=== PATIENT | female | born 2000 | race Caucasian/White ===

== ENCOUNTER 2018-04-06 23:56 | Emergency (ER) | payer BC, SELFPAY ==
[2018-04-06 23:57] VITALS: BP 155/82; PULSE 97; RESP 18; TEMP 37; O2SAT 99; BMI 36.8
[2018-04-07 00:03] VITALS: RESP 16
--- NOTE | 2018-04-07 00:13 | ED.DCSUM_ITS ---
- ER Visit Summary Date of Service: 04/07/18 Chief Complaint: Left flank pain History of Present Illness: The patient is a 18 F with left flank pain since waking yesterday morning. It is not necessarily worsened by movement. No recent injury. Patient states she did have some pain with urinating last week, but none the last several days. No blood in her urine. No fever or chills. Physical Examination: Blood pressure is 155/82, otherwise vitals unremarkable. Head neck examination is unremarkable. Heart is regular rate and rhythm. Lung sounds are clear. Abdomen is soft with no anterior abdominal tenderness. Active bowel sounds are noted. Back examination does reveal left CVA tenderness. No rash or lesions. Test Results: CBC was a white count of 14.6 with normal differential. Hemoglobin slightly concentrated at 15.7. Chemistry studies normal. Urinalysis shows 5-10 white cells but 5-10 epithelials. test is negative. Emergency Department Course and Treatment: Patient was given Toradol and IV fluids. On repeat evaluation she does feel significantly improved. At this time patient be treated with a home course of Toradol. If her symptoms worsen she will return for repeat evaluation. She is comfortable with this plan. Treatment Plan: [] Disposition: Discharge Impression: Left flank pain, uncertain etiology This note was generated with [employer] dictation software. It may contain incorrect words, spelling, and punctuation that were not noted in review of the chart prior to signing ED Disposition - Plan for ED Patient: Chief Complaint: Flank Pain Referrals: Jacob Byrnes DO [Primary Care Provider] -
[2018-04-07] MEDS: 0.9% Normal Saline 1,000 ML 250 ML IV (00:29)
[2018-04-07] MEDS: Ketorolac 30 MG/ML Syringe IV (00:29)
[2018-04-07 00:34] LABS: Mucous, Urine 0 SEEN /hpf (<or=2+)
[2018-04-07 00:38] LABS: Absolute Lymphocyte Count 3.17 X10^3/ul (0.83-4.51); Absolute Neutrophil Count 10.3 X10^3/uL (2.0-7.7); Basophil# 0.03 X10^3/uL; Basophil% 0.2 % (0-1); Eosinophil# 0.27 X10^3/uL; Eosinophils% 1.9 % (0-5); Hematocrit 46.9 % (37-47); Hemoglobin 15.7 g/dl (12.0-15.0); Lymphocyte # 3.17 X10^3/ul (4.0); Lymphocyte % 21.8 % (19-41); Mean Corp Hgb Conc 33.5 g/gl (32-36); Mean Corpuscular Hgb 30.1 pg (27.0-32.0); Mean Platelet Vol. 10.6 fl (6.2-12.0); Monocyte# 0.76 X10^3/uL; Monocyte% 5.2 % (0-10); Neutrophil # 10.29 X10^3/uL (2.7-7.7); Neutrophil % 70.6 % (47-70); Platelet Count 329 K/mm3 (150-450); RBC Distribution Width CV 12.2 % (11.6-14.6); Red Blood Count 5.21 M/mm3 (4.2-5.4); White Blood Count 14.6 K/mm3 (4.4-11.0)
[2018-04-07 00:39] LABS: POSITIVE COUNT NO; POSITIVE DIFFERENTIAL NO; POSITIVE MORPHOLOGY NO
[2018-04-07 00:40] LABS: Color, Urine Yellow (Yellow); Glucose, Dipstick Normal (Normal); Ketone-Dipstick Negative (Negative); Leukocyte Esterase-Dipstick 25 /ul (Negative); Nitrite-Dipstick Negative (Negative); Occult Blood-Urine 25 /ul (Negative); Protein-Dipstick 100 mg/dl (Negative); Urine Bilirubin Dipstick Negative (Negative); Urine Clarity Sl. Cloudy (Clear); Urine Urobilinogen Normal (Normal)
[2018-04-07 00:54] LABS: Bacteria 1+ /hpf (None Seen); Squamous Epithelial Cells - UA 5-10 SEEN /hpf (5-10); White Blood Cells 5-10 SEEN /hpf (0-5)
[2018-04-07 00:55] LABS: Red Blood Cells-Urine 0-5 SEEN /hpf (0-5)
[2018-04-07 01:03] LABS: Anion Gap 6 (5-15); BUN 14 mg/dL (7-18); BUN/Creat Ratio 17.5 RATIO (10-20); Calcium,Total 8.7 mg/dL (8.5-10.1); Chloride 105 mmol/L (98-107); EST Glomerular Filtration Rate 97 mL/min (>60); Est Glom Filt Rate - Afr Amer 117 mL/min (>60); Estimated Creatinine Clearance 96.86 ml/min; Glucose 85 mg/dL (74-106); Potassium 3.8 mmol/L (3.5-5.1); Sodium Level 137 mmol/L (136-145)
[2018-04-07 01:24] LABS: Pregnancy, Serum, hCG Quali. NEGATIVE Negative (0-9 Nonpreg)
--- NOTE | 2018-04-07 01:44 | ED.DEP ---
ED Disposition - Plan for ED Patient: Disposition: Home or Assisted Living Chief Complaint: Flank Pain Instructions: ED Flank Pain Uncertain Cause Prescriptions: Ketorolac [Toradol] 10 mg PO Q6H PRN #14 tablet PRN Reason: Pain Referrals: Jacob Byrnes DO [Primary Care Provider] - 1-2 Weeks
[2018-04-07 01:53] VITALS: BP 119/78; PULSE 91; RESP 15; O2SAT 97
== END 2018-04-07 01:55 | disposition home or self-care (01) ==
PROVIDERS: Emergency Provider Emergency Medicine; Family Provider Pediatrics; PCP Pediatrics
DX: R10.9 Unspecified abdominal pain (principal); Z84.1 Family history of disorders of kidney and ureter
CPT/HCPCS: 80048; 81001; 84703; 85025; 96361; 96374; 99283; J7030; A4216

== ENCOUNTER → 2018-09-22 15:34 | Outpatient (CLI) | payer BC, SELFPAY ==
[2018-09-22 19:05] LABS: Chlamydia Trachomatis by PCR Negative (Negative); Neisserai gonorrhoeae by PCR Negative (Negative); Probe Check PASS; Sample Adequacy Control PASS; Specimen Processing Control PASS
[2018-09-28 12:11] LABS: HPV Reflexed? NOT INDICATED
== END ==
PROVIDERS: Visit Provider Obstetrics & Gynecology
DX: Z12.4 Encounter for screening for malignant neoplasm of cervix (principal); Z11.3 Encounter for screening for infections with a predominantly sexual mode of transmission; Z32.01 Encounter for pregnancy test, result positive
CPT/HCPCS: 87491; 87591; 88175; G0145

== ENCOUNTER → 2018-10-09 14:44 | Outpatient (CLI) | payer BC, MEDICAID, SELFPAY ==
[2018-10-09 16:03] LABS: Absolute Neutrophil Count 9.4 X10^3/uL (2.0-7.7); Basophil# 0.02 X10^3/uL; Basophil% 0.2 % (0-1); Eosinophil# 0.09 X10^3/uL; Eosinophils% 0.7 % (0-5); Hematocrit 39.6 % (37-47); Hemoglobin 13.6 g/dl (12.0-15.0); Lymphocyte % 21.5 % (19-41); Mean Corp Hgb Conc 34.3 g/gl (32-36); Mean Corpuscular Hgb 30.4 pg (27.0-32.0); Mean Corpuscular Volume 88.4 fL (81-99); Mean Platelet Vol. 10.4 fl (6.2-12.0); Monocyte# 0.74 X10^3/uL; Monocyte% 5.7 % (0-10); Neutrophil # 9.36 X10^3/uL (2.7-7.7); Neutrophil % 71.8 % (47-70); Platelet Count 293 K/mm3 (150-450); RBC Distribution Width CV 12.6 % (11.6-14.6); RBC Distribution Width SD 40.5 fl (35.1-43.9); Red Blood Count 4.48 M/mm3 (4.2-5.4)
[2018-10-09 16:08] LABS: POSITIVE COUNT NO; POSITIVE DIFFERENTIAL NO; POSITIVE MORPHOLOGY NO
[2018-10-09 16:20] LABS: Color, Urine Yellow (Yellow); Glucose, Dipstick Normal (Normal); Ketone-Dipstick 5 mg/dl (Negative); Leukocyte Esterase-Dipstick 25 /ul (Negative); Nitrite-Dipstick Negative (Negative); Occult Blood-Urine Negative /ul (Negative); Protein-Dipstick Negative (Negative); Specific Gravity, Urine 1.025 (1.002-1.030); Urine Bilirubin Dipstick Negative (Negative); Urine Clarity Cloudy (Clear); Urine Urobilinogen Normal (Normal)
[2018-10-09 16:52] LABS: COTININE Drug Screen Negative (<200 ng/mL)
[2018-10-09 16:53] LABS: Amphetamine Urine VISTA NEGATIVE (<1000 ng/mL); Barbiturate Urine VISTA NEGATIVE (< 200 ng/mL); Benzodiazepine Urine VISTA NEGATIVE (< 200 ng/mL); Cocaine Urine VISTA NEGATIVE (< 300 ng/mL); Ecstacy Urine VISTA NEGATIVE (< 500 ng/mL); Methadone Urine VISTA NEGATIVE (< 300 ng/mL); PCP Urine VISTA NEGATIVE (< 25 ng/mL); THC Urine VISTA NEGATIVE (< 50 ng/mL); Vista UDS pH Range 5
[2018-10-09 17:10] LABS: HIV - WCH Non-Reactive (Nonreactive)
[2018-10-11 14:47] LABS: HEPATITIS B SURFACE AG Negative (Negative); Hep C Antibodies 0.1 s/co ratio (0.0-0.9)
[2018-10-12 10:57] LABS: Free T3 2.8 pg/mL (2.18-3.98); T4 Free Direct 0.93 ng/dL (0.76-1.46)
[2018-10-16 03:40] LABS: Prenatal RPR NONREACTIVE (NONREACTIVE)
== END ==
PROVIDERS: Visit Provider Obstetrics & Gynecology
DX: Z34.81 Encounter for supervision of other normal pregnancy, first trimester (principal); R94.6 Abnormal results of thyroid function studies
CPT/HCPCS: 36415; 80307; 81002; 84439; 84443; 84481; 85025; 86703; 86762; 86803; 87340

== ENCOUNTER → 2018-12-08 11:00 | Outpatient (CLI) | payer BC, MEDICAID, SELFPAY ==
[2018-12-08 15:18] LABS: Free T3 3.1 pg/mL (2.18-3.98); T4 Free Direct 0.93 ng/dL (0.76-1.46); Thyroid Stim Hormone (TSH) 7.84 uIU/mL (0.358-3.74)
== END ==
PROVIDERS: Visit Provider Obstetrics & Gynecology
DX: Z34.82 Encounter for supervision of other normal pregnancy, second trimester (principal); R94.6 Abnormal results of thyroid function studies
CPT/HCPCS: 36415; 82105; 82677; 84439; 84443; 84481; 84702

== ENCOUNTER → 2019-01-08 11:33 | Outpatient (CLI) | payer BC, MEDICAID, SELFPAY ==
[2019-01-08 12:41] LABS: Free T3 3.2 pg/mL (2.18-3.98); T4 Free Direct 0.78 ng/dL (0.76-1.46); Thyroid Stim Hormone (TSH) 6.93 uIU/mL (0.358-3.74)
[2019-01-11 08:23] LABS: Thyroid Peroxidase AB 18 IU/mL (0-34)
== END ==
PROVIDERS: Visit Provider Obstetrics & Gynecology
DX: O99.89 Other specified diseases and conditions complicating pregnancy, childbirth and the puerperium (principal); R94.6 Abnormal results of thyroid function studies; Z3A.00 Weeks of gestation of pregnancy not specified
CPT/HCPCS: 36415; 84439; 84443; 84481; 86376

== ENCOUNTER → 2019-02-26 08:57 | Outpatient (CLI) | payer BC, MEDICAID, SELFPAY ==
[2019-02-26 10:43] LABS: Hematocrit 40.5 % (37-47); Hemoglobin 13.5 g/dL (12.0-15.0); Mean Corp Hgb Conc 33.3 g/dL (32-36); Mean Corpuscular Hgb 31.2 pg (27.0-32.0); Mean Corpuscular Volume 93.5 fL (81-99); Mean Platelet Vol. 10.8 fl (6.2-12.0); Platelet Count 220 K/mm3 (150-450); RBC Distribution Width CV 11.9 % (11.6-14.6); RBC Distribution Width SD 41.1 fl (35.1-43.9); Red Blood Count 4.33 M/mm3 (4.2-5.4); White Blood Count 9.9 K/mm3 (4.4-11.0)
[2019-02-26 10:55] LABS: Glucose Challenge Gest 1H 50g 127 mg/dL (70-140)
== END ==
PROVIDERS: Visit Provider Obstetrics & Gynecology
DX: Z34.83 Encounter for supervision of other normal pregnancy, third trimester (principal)
CPT/HCPCS: 36415; 82950; 85027

== ENCOUNTER 2019-04-16 02:30 | Inpatient (IN) | payer BC, MEDICAID, SELFPAY ==
[2019-04-16 01:50] VITALS: BMI 45.8
[2019-04-16 02:18] LABS: Mucous, Urine 0 SEEN /hpf (<or=2+)
[2019-04-16 02:20] LABS: Color, Urine Yellow (Yellow); Glucose, Dipstick Normal (Normal); Ketone-Dipstick 5 mg/dl (Negative); Leukocyte Esterase-Dipstick 100 /ul (Negative); Nitrite-Dipstick Negative (Negative); Occult Blood-Urine 250 /ul (Negative); Protein-Dipstick 30 mg/dl (Negative); Urine Bilirubin Dipstick Negative (Negative); Urine Clarity Cloudy (Clear); Urine Urobilinogen Normal (Normal)
[2019-04-16 02:23] LABS: ROM Internal Control Test YES-OK TO RESULT pt. (Internal QC)
[2019-04-16 02:24] LABS: ROM Patient Test POSITIVE (Negative)
[2019-04-16 02:27] LABS: Bacteria 2+ /hpf (None Seen); Squamous Epithelial Cells - UA 25-50 SEEN /hpf (5-10); White Blood Cells 10-25 SEEN /hpf (0-5)
[2019-04-16 02:28] LABS: Red Blood Cells-Urine 25-50 SEEN /hpf (0-5)
[2019-04-16] MEDS: Lactated Ringers 1,000 ML 50 ML IV (03:00)
[2019-04-16 03:21] LABS: Absolute Lymphocyte Count 1.73 X10^3/uL (0.83-4.51); Absolute Neutrophil Count 9.3 X10^3/uL (2.0-7.7); Basophil# 0.03 X10^3/uL; Basophil% 0.3 % (0-1); Eosinophil# 0.07 X10^3/uL; Eosinophils% 0.6 % (0-5); Hematocrit 37.6 % (37-47); Hemoglobin 12.3 g/dL (12.0-15.0); Lymphocyte # 1.73 X10^3/ul (4.0); Lymphocyte % 14.5 % (19-41); Mean Corp Hgb Conc 32.7 g/dL (32-36); Mean Corpuscular Hgb 29.9 pg (27.0-32.0); Mean Corpuscular Volume 91.3 fL (81-99); Mean Platelet Vol. 10.8 fl (6.2-12.0); Monocyte# 0.73 X10^3/uL; Monocyte% 6.1 % (0-10); NRBC Flagged by Analyzer 0 % (0-5); Neutrophil # 9.32 X10^3/uL (2.7-7.7); Neutrophil % 78.2 % (47-70); Platelet Count 240 K/mm3 (150-450); RBC Distribution Width CV 11.9 % (11.6-14.6); RBC Distribution Width SD 39.5 fl (35.1-43.9); Red Blood Count 4.12 M/mm3 (4.2-5.4); White Blood Count 11.9 K/mm3 (4.4-11.0)
[2019-04-16 03:44] LABS: Group B Strep DNA By PCR Negative (Negative); Internal Control PASS; Probe Check PASS; Specimen Processing Control PASS
[2019-04-16] MEDS: Oxytocin 30 units/NS 500 ml 30 UNITS/500 ML IV.SOLN IV (09:07)
[2019-04-16] MEDS: Acetaminophen 325 MG Tablet PO (09:36)
[2019-04-16] MEDS: Lactated Ringers 500 ML 999 ML IV ×2 (10:35→16:49)
[2019-04-16] MEDS: fentaNYL-bupivacaine (epidural) 100 ML BAG EPIDURAL ×2 (11:36→16:53)
[2019-04-16] MEDS: Lactated Ringers 1,000 ML 200 ML IV ×2 (14:19→19:30)
--- NOTE | 2019-04-16 18:52 | PCM.PN.BLA ---
Progress Note LABOR PROGRESS No complaints. Comfortable with epidural. AVSS FHR 150, moderate variability, + variable deceleration, no accelerations TOCO - 4/10 min SVE FD/+1 station A/P: 19yo G1 @ 35 6/7wga in labor, Cat II FHR -Will continue in second stage -Anticipate
[2019-04-16] MEDS: Ondansetron 4 MG/2 ML Vial IV (19:05)
--- NOTE | 2019-04-16 20:09 | PCM.HP.OB ---
- Problem List (1) 35 weeks gestation of Status: Acute History Date of Admission: 04/16/19 Final KARI: 05/15/19 Final KARI Source: US <20 weeks Gestational age: 35 Weeks and 6 Days History of this : This is a 19 year-old, G [1], P [], at 35 6/7 weeks gestational age with c/o leaking of fluid since 11pm with clear fluid. She denies contractions, vaginal bleeding. + FM. She is feeling well and without other complaint. Medical History: Medical History (Last Updated 04/16/19 @ 20:16 by Sandra Earl MD) Patient denies medical problems Z78.9 Allergies codeine Allergy (Verified 04/06/18 23:59) Hives diphenhydramine [From Benadryl] Allergy (Verified 04/16/19 01:59) Hives guaifenesin [From Robitussin] Allergy (Verified 04/06/18 23:59) Hives Penicillins Allergy (Verified 04/06/18 23:59) Hives Smoking Status: Never smoker Alcohol: None Number of Fetus(es): 1 NST - FHR Rate Baby A Baseline: 145 Variability:: Moderate Accelerations:: 15 x 15 Decelerations:: Variable NST Reactive:: Yes FHR Category:: Category I Uterine Activity:: 0-1/10 History Past Pregnancies: Past Pregnancies Delivery Date Name GA/ Weeks Outcome Route Wt Infant Sex Labor Length Anesthesia Delivery Location Provider FOB Labs: Mom's Microbiology 04/16/19 Unknown Genital vaginal Group B Streptococcus Culture - Pending Mom's Problem List Problem Status Onset Code 35 weeks gestation of Acute Z3A.35 Mom's Labs & Results 04/16/19 04/16/19 04/16/19 01:40 01:40 01:40 WBC RBC Hgb Hct MCV MCH MCHC RDW Std Deviation RDW Coeff of Bonifacio Plt Count MPV Immature Gran % (Auto) Neut % (Auto) Lymph % (Auto) Stevens % (Auto) Eos % (Auto) Baso % (Auto) Absolute Neuts (auto) Absolute Lymphs (auto) Nucleated RBC % Urine Color Yellow Urine Clarity Cloudy Urine pH 6.0 Ur Specific [place] 1.020 Urine Protein 30 H Urine Glucose (UA) Normal Urine Ketones 5 H Urine Occult Blood 250 H Urine Nitrite Negative Urine Bilirubin Negative Urine Urobilinogen Normal Ur Leukocyte Esterase 100 H Urine RBC 25-50 SEEN Urine WBC 10-25 SEEN Ur Squamous Epith Cells 25-50 SEEN Urine Bacteria 2+ Urine Mucus 0 SEEN Vag Amniotic Fld Detect POSITIVE H Group B Strep DNA Negative Specimen Comment Not Reportable Blood Type Antibody Screen 04/16/19 04/16/19 03:08 03:08 WBC 11.9 H RBC 4.12 L Hgb 12.3 Hct 37.6 MCV 91.3 MCH 29.9 MCHC 32.7 RDW Std Deviation 39.5 RDW Coeff of Bonifacio 11.9 Plt Count 240 MPV 10.8 Immature Gran % (Auto) 0.300 Neut % (Auto) 78.2 H Lymph % (Auto) 14.5 L Stevens % (Auto) 6.1 Eos % (Auto) 0.6 Baso % (Auto) 0.3 Absolute Neuts (auto) 9.3 H Absolute Lymphs (auto) 1.73 Nucleated RBC % 0 Urine Color Urine Clarity Urine pH Ur Specific [place] Urine Protein Urine Glucose (UA) Urine Ketones Urine Occult Blood Urine Nitrite Urine Bilirubin Urine Urobilinogen Ur Leukocyte Esterase Urine RBC Urine WBC Ur Squamous Epith Cells Urine Bacteria Urine Mucus Vag Amniotic Fld Detect Group B Strep DNA Specimen Comment Blood Type A POSITIVE Antibody Screen NEGATIVE Course Did the patient receive Yes care? Labs Blood Type: A RH: POSITIVE RPR/VDRL/Syphilis Nonreactive Rubella status Immune HbSAg Negative Date Done: 10/09/18 Chlamydia Negative Gonorrhea Negative HIV/AIDS Non-Reactive Group B Strep: Collected on Admission Current Obstetrical History Gestational Diabetes No Incompetent Cervix No Infertility No IUGR No Macrosomia No Hypertension/Pre-eclampsia No Placenta Previa/Abruption No PTL/PROM No Uterine anomaly No Oligohydramnios No Polyhydramnios No Multiple gestation No Past Medical History Asthma No Diabetes No Hypertension No Heart disease No Mitral valve prolapse No Neurologic/Seizure disorder/ Yes: migraines Migraines Kidney disease No Liver disease No Varicosities No Clotting disorders/Hx of DVT No Thyroid Dysfunction Yes: moinitored labs closesly, no meds Other medical diseases No Psychiatric disorders No Major trauma No Abnormal PAP smear No Sleep apnea No Social History Marital Status: SINGLE Alleged father Omari Orta Hx Smoking No Smoking Status Never smoker Expected Infant Delivery Method: Spontaneous Vaginal Number of Visits: 9 Review of Systems Constitutional: Denies: Chills, Fever, Fatigue HEENT: Denies: Head Aches, Sore Throat Cardiovascular: Denies: Chest Pain, Edema Respiratory: Denies: Cough, Shortness of Breath Gastrointestinal: Denies: Abdominal Pain, Nausea, Vomiting Genitourinary: Denies: Dysuria Gynecological: Denies: Vaginal bleeding Physical Exam Vitals: AVSS General: Alert, Oriented x3, Cooperative, No apparent distress HEENT: Atraumatic, Normocephalic Cardiovascular: Regular rate, Regular Rhythm, Normal S1, Normal S2 Lungs: Clear to auscultation, Normal air movement Abdomen: Soft, Non Tender, Non-Distended, - - no CVA tenderness Extremities:: No edema Neurological: Neuro grossly intact Estimated gestational size: Appropriate for gestational size Presentation: Cephalic Cervix Dilation (cm): 2 Station: -2 Effacement (%): 70 Assessment/Plan All Active Problems 35 weeks gestation of (Acute) This is a 19 year-old, G [1], P [], at 35 6/7 weeks gestational age, Cat I FHR with PPROM -No evidence of infection -Bedside US - fetus cephalic -Plan for pitocin induction -GBS negative -Labor and delivery consents reviewed with discussion of L&D risks. Patient given opportunity to ask questions and questions answered to her satisfaction.
[2019-04-16] MEDS: Oxytocin 30 units/NS 500 ml 30 UNITS/500 ML IV.SOLN 334 UNITS IV (21:27)
--- NOTE | 2019-04-16 21:58 | OP.PCM_ITS ---
Problem List (1) 35 weeks gestation of Status: Acute (2) Vacuum-assisted vaginal delivery Status: Acute Report of Operation Date of Procedure: 04/16/19 Pre-Operative Diagnosis: 35 6/7wga, PPROM Post-Operative Diagnosis: 35 6/7wga, PPROM Vaginal Delivery Maternal Presentation: Medically Indicated Induction Method of Induction: Pitocin Medical Reason for Induction: Premature Rupture of Membranes, - - premature rupture of membranes Amniotic Membrane Rupture Type: Spontaneous at home Rupture of Membrane time: 04/15/19 at 2300h Amniotic Fluid Description: Clear Final KARI: 05/15/19 Final KARI Source: US <20 weeks Gestational age: 35 Weeks and 6 Days [place] doctor who attended delivery (if requested by OB): Windy Goldstein Date of Procedure: 04/16/19 Pre-Operative Diagnosis: 35 6/7wga, PPROM Post-Operative Diagnosis: 35 6/7wga, PPROM, prolonged second stage Surgery/ Procedure Performed: Vacuum Assisted Vaginal Delivery Anesthesiologist: Eloy Barros Type of Anesthesia: Epidural Description of Procedure: Patient was FD/+2 station, RADHA after approximately 4.5 hours of pushing. I advised vacuum assisted vaginal delivery. Reviewed with patient and family maternal and vacuum related risks, indications, benefits. Patient agreed to proceed. The Kiwi cap was placed at the flexion point at 2117_h. Five hundred mmHg suction was applied. Over 6 minutes and 4 pulls without any pop-offs the head delivered. The suction was released and Kiwi cap removed. The was delivered through a tight nuchal cord using the Somersault maneuver. The infant was placed on the maternal abdomen and further attended by nursery personnel. The cord was doubly clamped and cut at approximately 30 seconds of life. Cord gases were obtained. The placenta delivered spontaneously and appeared intact on inspection. A second degree perineal laceration with vaginal extension was repaired with 3-0 Vicryl Rapide. Sponge counts were correct x 2. Presentation: Vertex Placental Delivery Description: Spontaneous Placenta Disposition: [facility] Cord Vessel Description: 3 Vessels Nuchal Cord Compression: With compression Cord Gases drawn per routine: ABG, VBG Cord Entanglement: Around neck x 1, tight Drain: Hale to straight drain Estimated Blood Loss: 350ml A gender: Male (1 minute): 7 (5 minute): 9 Laceration: Midline, Vaginal Extension/lac, 2nd degree Medications given after delivery: IV Pitocin Complications: None
--- NOTE | 2019-04-16 22:10 | PLAC_PTH ---
PATIENT: J[place] PAGAN LOC: [facility] U#:[id number] AGE/SX: 19/ ROOM: WP003 RE04/16/[address]: Dr. Sandra Christina MD : 2000 BED: 1 DIS: 04/18/2019 SPEC #: [id number] RECD: 04/16/19 23:11 STATUS: ERNA ZACKARY #: [id number] JULISSA: 04/16/19 22:[address]: Sandra Wang DEPT: SURGICAL PATHOLOGY RECD BY: Jeremy Vigil Tissues: Placenta, NOS Procedures: Surgery Specimen Level V HEADER OPERATION: Vaginal delivery PRE-OP DIAGNOSIS: VEGA, PPROM TISSUE SUBMITTED: Placenta MICROSCOPIC DIAGNOSIS Placenta: Placental disc - third trimester placenta (487 gm). Membranes - no pathologic diagnosis. Umbilical cord - three blood vessels and focal acute funisitis. SJ:maday 04/20/19 COMMENT Case has been reviewed in consultation with Dr. Baldwin who concurs with the above diagnosis. IDC:AM MICROSCOPIC DESCRIPTION Slides are reviewed. GROSS DESCRIPTION SPECIMEN: PLACENTA / CLINICAL INFORMATION: A. Weight: 2.69 gm B. Gestational Age: 35 weeks C. Sex: Male PLACENTAL WEIGHT (POST FIXATION): 487 gm PLACENTAL DIMENSIONS: 17.5 x 15 x 3 cm PLACENTAL SHAPE: Usual ovoid PLACENTAL WEIGHT FOR GESTATIONAL AGE: Within 10-99th percentile MEMBRANES - Present A. Insertion: Marginal B. Site of rupture from edge: At edge of placental disc C. Color of membrane: Roa-jones D. Abnormalities: None UMBILICAL CORD - Present A. Color: Roa-jones B. Insertion: Eccentric C. Length: 28 cm D. Diameter: 1.5 cm E. Number of vessels: Three F. Abnormalities: None PLACENTAL DISC - Present A. Color of surface: Roa-jones B. surface abnormalities: None C. Maternal cotyledons: Intact with minimal tears D. Attached retro placental clot: No clot E. Cut surface: Dark red and spongy F. Lesions: None G. Separate clot: 7 x 7 x 2.5 cm SECTIONS SUBMITTED: 1. Umbilical cord ( end notched) 2. Membrane roll 3. Placental disc, and maternal surfaces 4. Placental disc, and maternal surfaces 5. Placental disc, and maternal surfaces AM:maday 04/19/19 TC:2 CPT: 99200
--- NOTE | 2019-04-16 22:16 | DCINST_ITS ---
Discharge Diet: No Restrictions Discharge Activity: Return to Normal Activity May resume sexual activity in: 6 weeks Lifting Restrictions: 10-20 lb Suture Line Care: Avoid Pulling/Pushing Cleanse incision/area with: Soap & Water Additional Instructions: If you experience any of the following, contact your healthcare provider. * Bleeding that soaks a pad every hour for 2 hours * Fever 100.4 or higher * Unrelieved incision or abdominal pain * Swelling, redness, discharge or bleeding from your incision or episiotomy site * Your incision begins to separate * Problems urinating (including inability to urinate or burning while urinating). * Visual changes * Severe headache * Flu-like symptoms * Pain or redness in one of both of your breasts * Pain, warmth, tenderness or swelling in your legs, especially the calf area * Frequent nausea and vomiting * Symptoms of depression or anxiety If you experience any of the following, call 911 or go to the nearest Emergency Room. * Chest pain * Problems breathing * Seizure activity * Partial or complete paralysis of a body part, slurred speech, weakness or drooping of the face, or a sudden inability to walk or hold your balance Take a multivitamin daily for 6 weeks or until completed (whichever is longest). Allergies/Adverse Reactions: Allergies codeine Allergy (Verified 04/06/18 23:59) Hives diphenhydramine [From Benadryl] Allergy (Verified 04/16/19 01:59) Hives guaifenesin [From Robitussin] Allergy (Verified 04/06/18 23:59) Hives Penicillins Allergy (Verified 04/06/18 23:59) Hives Medications to take at Discharge Ibuprofen [Motrin] 600 mg PO Q8H PRN PRN #30 tab 04/17/19 Senna/Docusate Sodium [Senokot-S] 1 - 2 tab PO DAILY PRN PRN #60 tab 04/17/19 Please Follow Up With: Reema York MD When: 6 weeks Test Results: Test results from this visit will be discussed in further detail at your follow- up appointment, if applicable.
[2019-04-16] MEDS: Acetaminophen 500 MG Tablet 1000 MG PO (22:47)
[2019-04-16 23:08] LABS: Pathology Specimen OB SEE PATHOLOGY REPORT
[2019-04-17] MEDS: Ibuprofen 600 MG Tablet PO ×3 (00:09→18:41)
[2019-04-17 04:10] VITALS: BP 147/90; PULSE 98; RESP 18; TEMP 36.6
[2019-04-17 07:58] LABS: Hematocrit 33.7 % (37-47); Hemoglobin 11.1 g/dL (12.0-15.0); Mean Corp Hgb Conc 32.9 g/dL (32-36); Mean Corpuscular Hgb 30.4 pg (27.0-32.0); Mean Corpuscular Volume 92.3 fL (81-99); Mean Platelet Vol. 10.7 fl (6.2-12.0); Platelet Count 196 K/mm3 (150-450); RBC Distribution Width CV 12.4 % (11.6-14.6); RBC Distribution Width SD 41.3 fl (35.1-43.9); Red Blood Count 3.65 M/mm3 (4.2-5.4); White Blood Count 13.1 K/mm3 (4.4-11.0)
--- NOTE | 2019-04-17 08:54 | PN.OBGYN_ITS ---
Patient Problems: Active and Suspected Problems (Last Updated 04/16/19 @ 20:16 by Sandra Christina MD) 35 weeks gestation of (Acute) Vacuum-assisted vaginal delivery (Acute) Subjective: Has pain 4/10 with hemorrhoid d/t prolonged pushing. Reports last night had a migraine, but tylenol took it away. She states she was face pushing a lot during labor. male is going well, working with and received breast pump for home. She reports has been up to the bathroom, urinating well, but not passing flatus yet. With the hemorrhoid, reports fear of BM movement. Is taking Ibuprofen for vaginal laceration. States it doesn't hurt, but wants to take it to help with swelling. Has no questions or concerns at this time. Objective: Sitting in bed nursing male on arrival to room. Fundus one under umbilicus, firm. Bleeding well controlled PP Day 1. Discussed and educated on normal PP bleeding pattern and length. Having no vaginal or laceration pain. Reports pain with hemorrhoid, but using witch angelo pads with good pain control. Is up to bathroom passing flatus, but no bowel movement. Is taking Ibuprofen and Tylenol for pain control. Wants to get up to shower today. Discussed breast feeding and received breast pump to go home with. Plans to get Nexplanon placed before discharge. Educated on not resuming intercourse because of risk of infection and laceration pain for 4-6 weeks. Has no questions or concerns today. Wants to discharge home tomorrow. - Physical Exam Vitals/I&O's: Vital Signs Temp Pulse Resp BP 98 F 98 18 147/90 H 04/17/19 04:10 04/17/19 04:10 04/17/19 04:10 04/17/19 04:10 Weight: 121 kg Body Mass Index (BMI) 45.8 Intake and Output for Last 24 Hours 04/15/19 04/16/19 04/17/19 23:59 23:59 23:59 Intake Total 6021.37 / 6021.37 0 / 0 Output Total 2800 / 2800 800 / 800 Balance 3221.37 / 3221.37 -800 / -800 General: Alert, Oriented x3, Cooperative HEENT: Atraumatic, PERRLA, EOMI, Normocephalic Neck: Supple, No JVD, Negative Carotid Bruits Lungs: Clear to auscultation, Normal air movement Cardiovascular: Regular rate, No murmurs Abdomen: Bowel Sounds Present, Soft, Non Tender, - - fundus one below umbilicus Extremities: No edema, Capillary Refill Less than 3 Seconds Skin: No rashes, No breakdown Musculoskeletal: No Tenderness to Palpation of Joints or Extremities Neurological: Cranial nerves II-XII grossly intact Psych/Mental Status: Normal Affect, Appropriate Laboratory Results 04/17/19 07:40: WBC 13.1 H, RBC 3.65 L, Hgb 11.1 L, Hct 33.7 L, MCV 92.3, MCH 30.4, MCHC 32.9, RDW Std Deviation 41.3, RDW Coeff of Bonifacio 12.4, Plt Count 196, MPV 10.7 Current Medications Acetaminophen (Tylenol) 325 - 650 mg PO Q4H PRN PRN PRN Reason: Pain Score 1-310 Last Admin: 04/16/19 09:36 Dose: 650 mg Documented by: Acetaminophen (Tylenol) 1,000 mg PO Q8H PRN PRN PRN Reason: Pain Score 1-310 Last Admin: 04/16/19 22:47 Dose: 1,000 mg Documented by: Bisacodyl (Dulcolax) 10 mg RECTAL UD PRN PRN Reason: If no BM Dibucaine (Dibucaine) 1 applic TOPICAL TID PRN PRN; Protocol PRN Reason: Discomfort Hydrocortisone (Hytone) 1 applic TOPICAL TID PRN PRN; Protocol PRN Reason: Discomfort Ibuprofen (Motrin) 600 mg PO Q6H PRN PRN PRN Reason: Pain Score 1-3/10 Last Admin: 04/17/19 00:09 Dose: 600 mg Documented by: Methylergonovine Maleate (Methergine) 0.2 mg IM X1 PRN PRN Reason: Excess bleeding/uterine atony Ondansetron HCl (Zofran) 4 mg IV Q4H PRN PRN PRN Reason: NAUSEA Last Admin: 04/16/19 19:05 Dose: 4 mg Documented by: Senna/Docusate Sodium (Senokot-S, Naty-Colace) 1 - 2 tablet PO DAILY PRN PRN PRN Reason: Constipation Simethicone (Mylicon) 80 mg PO PCHS PRN PRN Reason: Indigestion/Stomach pain Sodium Chloride () 5 - 15 ml IV UD PRN PRN Reason: SALINE FLUSH Medical Necessity - Tobacco Use Smoking Status: Never smoker Assessment/Plan All Active Problems (Last Updated 04/16/19 @ 20:16 by Sandra Earl MD) 35 weeks gestation of (Acute) Vacuum-assisted vaginal delivery (Acute)
[2019-04-17] MEDS: Senna/Docusate Sodium 1 Tablet PO (09:59)
[2019-04-17 10:00] VITALS: BP 134/81; PULSE 104; RESP 14; TEMP 36.8
--- NOTE | 2019-04-17 12:00 | CASEMGMT ---
Social Work Referral Date: 04/17/19 Date of Assessment:04/17/19 Reason for Consult: To provide Mother of baby (MOB) with resources. Informant: Nursing, MOB, Chart. Personal Status Mentation: A&Ox3 Present during assessment: MOB, , MOB' sister and maternal grandmother. Hx : 1 Hx Para: 0 Gender: Male Infant Name: Kirsten Orta (1min): 7 (5min): 9 Care: Adequate Alleged father: Omari Orta Alleged father involved: Yes Length of Relationship with alleged father of baby: 3 years FOB Mental Health/AOD/Domestic Violence Hx: PTSD and Depression. MOB stating that father of baby (FOB) would benefit from starting counseling again and this is a conversation that is being had. MOB denies any abuse or neglect from FOB. MOB stating to feel safe with FOB. FOB Employment: [employer] Number of Children in the home: This is first child for both MOB and FOB. Custody Comments: MOB and FOB plan to discharge to home with . Living Arrangements: MOB, FOB and now this live in rental home. MOB/FOB rent from maternal grandparents. Education: High School Diploma Employment: [employer] Family Dynamics/Relationships: MOB stating to have positive relationships in life. Supports: MOB identifying maternal grandmother as main support but stating that FOB is supportive as well. MOB might live with maternal grandmother to assist in transitioning to home. MOB's home is on the same property as maternal grandmother. Transportation: None concerns identified. Substance Abuse Hx and Current Pattern of Use MOB denies any substance abuse. Mental Health Hx and Current Status MOB denies any mental health history. MOB educated on depression signs and symptoms. MOB receptive and engaged with this criminal justice social worker during conversation. MOB stating to feel comfortable talking with MOB's mother if signs/symptoms start to arise in regards to depression. Items/Skills List for Infants Care Supplies: MOB stating to have need infant supplies (crib, care seat, clothing etc.) Bonding With Infant: MOB stating to be bonding with infant and to have a connection. MOB planning to breastfeed. Observed Maternal/Paternal Child interaction: MOB attempting to breastfeed infant during assessment. MOB stating to be still learning. This criminal justice social worker encouraged MOB to continue to work with infant on latching but to have lisa with self and know that goal is to have fed, regardless if this is formula or breast milk. Emotional Assessment: MOB presenting with a positive affect and engaged in conversation. Control: MOB stating I am never having any other children. MOB stating plan to begin control MAHESH. Resources JFS: Medical and food stamps [facility]: Active with and plans to follow up with on Friday. Help Me Grow: Is agreeable to referral, confirmed MOB's address as: [address] [place] [address] [place]. [place], [place] 42 and phone number as: [phone]. Children Protective Services Hx: MOB denies any history. Intervention: Referral made to Help Me Grow. MOB provided with information on [facility] Resources, Help Me Grow, Safe Sleeping, Tips and Tricks to sooth a baby. Plan: to discharge to home with MOB and FOLittle. Darcy Bailon MSW, RONY
[2019-04-17 14:00] VITALS: BP 144/87; PULSE 98; RESP 18; TEMP 36.9
--- NOTE | 2019-04-17 16:58 | NURSING ---
1500 Kpad given for low back pain.
[2019-04-17 19:30] VITALS: BP 149/98; PULSE 96; RESP 18; TEMP 36.1; O2SAT 97
[2019-04-18 01:55] VITALS: BP 152/89; PULSE 99; RESP 16; TEMP 36.6; O2SAT 98
[2019-04-18] MEDS: Ibuprofen 600 MG Tablet PO (02:17)
[2019-04-18 07:00] VITALS: BP 137/92
[2019-04-18 08:00] VITALS: BP 137/96; PULSE 84; RESP 17
--- NOTE | 2019-04-18 09:54 | PN.OBGYN_ITS ---
Patient Problems: Active and Suspected Problems (Last Updated 04/16/19 @ 20:16 by Sandra Christina MD) 35 weeks gestation of (Acute) Vacuum-assisted vaginal delivery (Acute) Subjective: Reports painful perineum when getting out of bed from sitting on edge to standing. Denies heavy lochia. She requests Nexplanon. Objective: AVSS - Physical Exam Vitals/I&O's: Vital Signs Temp Pulse Resp BP Pulse Ox 97.9 F 84 17 137/96 H 98 04/18/19 01:55 04/18/19 08:00 04/18/19 08:00 04/18/19 08:00 04/18/19 01:55 Oxygen Delivery Method Room Air Weight: 121 kg Body Mass Index (BMI) 45.8 Intake and Output for Last 24 Hours 04/16/19 04/17/19 04/18/19 23:59 23:59 23:59 Intake Total 6021.37 / 6021.37 0 / 0 Output Total 2800 / 2800 1250 / 1250 Balance 3221.37 / 3221.37 -1250 / -1250 General: Alert, Oriented x3, Cooperative, No apparent distress HEENT: Atraumatic, Normocephalic Lungs: Clear to auscultation, Normal air movement Cardiovascular: Regular rate, Regular Rhythm Abdomen: Soft, Non Tender, Non-Distended, - - Fundus firm and nontender Extremities: No Calf Tenderness, - - b/l nonpedal edema Neurological: Neuro grossly intact Psych/Mental Status: Normal Affect, Appropriate, Alert and oriented to time, place, person, mood and affect Microbiology Past 72 Hours 04/16/19 Unknown Genital vaginal Group B Streptococcus Culture - Preliminary Group B Beta Streptococcus is not isolated. Current Medications Acetaminophen (Tylenol) 325 - 650 mg PO Q4H PRN PRN PRN Reason: Pain Score 1-310 Last Admin: 04/16/19 09:36 Dose: 650 mg Documented by: Acetaminophen (Tylenol) 1,000 mg PO Q8H PRN PRN PRN Reason: Pain Score 1-3/10 Last Admin: 04/16/19 22:47 Dose: 1,000 mg Documented by: Bisacodyl (Dulcolax) 10 mg RECTAL UD PRN PRN Reason: If no BM Dibucaine (Dibucaine) 1 applic TOPICAL TID PRN PRN; Protocol PRN Reason: Discomfort Etonogestrel (Nexplanon) 68 mg SQ X1 ONE Stop: 04/18/19 09:55 Hydrocortisone (Hytone) 1 applic TOPICAL TID PRN PRN; Protocol PRN Reason: Discomfort Ibuprofen (Motrin) 600 mg PO Q6H PRN PRN PRN Reason: Pain Score 1-3/10 Last Admin: 04/18/19 02:17 Dose: 600 mg Documented by: Methylergonovine Maleate (Methergine) 0.2 mg IM X1 PRN PRN Reason: Excess bleeding/uterine atony Ondansetron HCl (Zofran) 4 mg IV Q4H PRN PRN PRN Reason: NAUSEA Last Admin: 04/16/19 19:05 Dose: 4 mg Documented by: Senna/Docusate Sodium (Senokot-S, Naty-Colace) 1 - 2 tablet PO DAILY PRN PRN PRN Reason: Constipation Last Admin: 04/17/19 09:59 Dose: 2 tablet Documented by: Simethicone (Mylicon) 80 mg PO PCHS PRN PRN Reason: Indigestion/Stomach pain Sodium Chloride () 5 - 15 ml IV UD PRN PRN Reason: SALINE FLUSH Medical Necessity - Tobacco Use Smoking Status: Never smoker Assessment/Plan All Active Problems (Last Updated 04/16/19 @ 20:16 by Sandra Earl MD) 35 weeks gestation of (Acute) Vacuum-assisted vaginal delivery (Acute) This is a 19 year-old, G [1], P [] PPD#2 s/p VAVD -Rh positive -Contraceptive counseling performed - declines alternatives. Plan for Nexplanon. -d/c today.
[2019-04-18] MEDS: Etonogestrel 68 MG IMPLANT SQ (10:11)
--- NOTE | 2019-04-18 10:26 | DCINST_ITS ---
Discharge Diet: No Restrictions Discharge Activity: Return to Normal Activity May resume sexual activity in: 6 weeks Suture Line Care: Avoid Pulling/Pushing Cleanse incision/area with: Soap & Water Additional Instructions: If you experience any of the following, contact your healthcare provider. * Bleeding that soaks a pad every hour for 2 hours * Fever 100.4 or higher * Unrelieved incision or abdominal pain * Swelling, redness, discharge or bleeding from your incision or episiotomy site * Your incision begins to separate * Problems urinating (including inability to urinate or burning while urinating). * Visual changes * Severe headache * Flu-like symptoms * Pain or redness in one of both of your breasts * Pain, warmth, tenderness or swelling in your legs, especially the calf area * Frequent nausea and vomiting * Symptoms of depression or anxiety If you experience any of the following, call 911 or go to the nearest Emergency Room. * Chest pain * Problems breathing * Seizure activity * Partial or complete paralysis of a body part, slurred speech, weakness or drooping of the face, or a sudden inability to walk or hold your balance Allergies/Adverse Reactions: Allergies codeine Allergy (Verified 04/06/18 23:59) Hives diphenhydramine [From Benadryl] Allergy (Verified 04/16/19 01:59) Hives guaifenesin [From Robitussin] Allergy (Verified 04/06/18 23:59) Hives Penicillins Allergy (Verified 04/06/18 23:59) Hives Medications to take at Discharge Ibuprofen [Motrin] 600 mg PO Q8H PRN PRN #30 tab 04/17/19 Senna/Docusate Sodium [Senokot-S] 1 - 2 tab PO DAILY PRN PRN #60 tab 04/17/19 The following prescriptions were given: Ibuprofen [Motrin] 600 mg PO Q8H PRN PRN #30 tab PRN Reason: Pain Or Fever Transmission Status: Received by [facility] #[id number] Senna/Docusate Sodium [Senokot-S] 1 - 2 tab PO DAILY PRN PRN #60 tab PRN Reason: Constipation Transmission Status: Received by [facility] #[id number] Please Follow Up With: Reema York MD - Call office for a nurse blood pressure check When: 1-2 weeks Please Follow Up With: Reema York MD - visit When: 6 weeks Test Results: Test results from this visit will be discussed in further detail at your follow- up appointment, if applicable.
--- NOTE | 2019-04-18 10:26 | PCM.DCVAG ---
Discharge Diet: No Restrictions Discharge Activity: Return to Normal Activity May resume sexual activity in: 6 weeks Suture Line Care: Avoid Pulling/Pushing Cleanse incision/area with: Soap & Water Additional Instructions: If you experience any of the following, contact your healthcare provider. Bleeding that soaks a pad every hour for 2 hours Fever 100.4 or higher Unrelieved incision or abdominal pain Swelling, redness, discharge or bleeding from your incision or episiotomy site Your incision begins to separate Problems urinating (including inability to urinate or burning while urinating). Visual changes Severe headache Flu-like symptoms Pain or redness in one of both of your breasts Pain, warmth, tenderness or swelling in your legs, especially the calf area Frequent nausea and vomiting Symptoms of depression or anxiety If you experience any of the following, call 911 or go to the nearest Emergency Room. Chest pain Problems breathing Seizure activity Partial or complete paralysis of a body part, slurred speech, weakness or drooping of the face, or a sudden inability to walk or hold your balance Allergies/Adverse Reactions: Allergies codeine Allergy (Verified 04/06/18 23:59) Hives diphenhydramine [From Benadryl] Allergy (Verified 04/16/19 01:59) Hives guaifenesin [From Robitussin] Allergy (Verified 04/06/18 23:59) Hives Penicillins Allergy (Verified 04/06/18 23:59) Hives Medications to take at Discharge Ibuprofen [Motrin] 600 mg PO Q8H PRN PRN #30 tab 04/17/19 Senna/Docusate Sodium [Senokot-S] 1 - 2 tab PO DAILY PRN PRN #60 tab 04/17/19 The following prescriptions were given: Ibuprofen [Motrin] 600 mg PO Q8H PRN PRN #30 tab PRN Reason: Pain Or Fever Transmission Status: Received by [facility] #[id number] Senna/Docusate Sodium [Senokot-S] 1 - 2 tab PO DAILY PRN PRN #60 tab PRN Reason: Constipation Transmission Status: Received by [facility] #[id number] Please Follow Up With: Reema York MD - Call office for a nurse blood pressure check When: 1-2 weeks Please Follow Up With: Reema York MD - visit When: 6 weeks Test Results: Test results from this visit will be discussed in further detail at your follow-up appointment, if applicable.
[2019-04-18 14:00] VITALS: BP 129/73; PULSE 77; RESP 18; TEMP 37.2
[2019-04-18 20:00] VITALS: BP 137/90; PULSE 96; RESP 18; TEMP 36.3; O2SAT 98
--- NOTE | 2019-04-18 22:25 | NURSING ---
Reviewed breast pump parts and use with pt prior to discharge to [facility] status.
== END 2019-04-18 22:30 | disposition home or self-care (01) | DRG 806 ==
LOC: WPOUT 02:34
PROVIDERS: Obstetrics & Gynecology; Admitting Provider Obstetrics & Gynecology; Referring Provider Obstetrics & Gynecology; Visit Provider Obstetrics & Gynecology
DX: O76 Abnormality in fetal heart rate and rhythm complicating labor and delivery (principal); O99.354 Diseases of the nervous system complicating childbirth; Z37.0 Single live birth; O22.43 Hemorrhoids in pregnancy, third trimester; O42.013 Preterm premature rupture of membranes, onset of labor within 24 hours of rupture, third trimester; Z3A.35 35 weeks gestation of pregnancy; O70.1 Second degree perineal laceration during delivery; O69.1XX0 Labor and delivery complicated by cord around neck, with compression, not applicable or unspecified; G43.909 Migraine, unspecified, not intractable, without status migrainosus
CPT/HCPCS: 59025; 59050; 76815; 81001; 84112; 85025; 85027; 86850; 86900; 86901; 87081; 87653; 88307; 99218; J7120; G0378; J2405

== ENCOUNTER → 2021-12-14 | Outpatient (CLI) | payer OTHER, MEDICAID, SELFPAY ==
[2021-12-19 16:15] LABS: HPV Reflexed? NOT INDICATED
== END | disposition home or self-care (01) ==
LOC: LABSPEC 15:45
PROVIDERS: Visit Provider Student in an Organized Health Care Education/Training Program
DX: Z12.4 Encounter for screening for malignant neoplasm of cervix (principal)
CPT/HCPCS: 88175; G0145

== ENCOUNTER 2024-01-31 21:03 | Emergency (ER) | payer MEDICAID, SELFPAY ==
[2024-01-31 21:03] VITALS: BP 147/103; PULSE 102; RESP 18; TEMP 36.1; O2SAT 100; BMI 40.5
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
--- NOTE | 2024-01-31 21:30 | RAD_ITS ---
INDICATION: Injury/Pain EXAMINATION/TECHNIQUE: X-RAY - LEFT XR Hand Min 3 Views 3 VIEWS COMPARISON: No relevant prior comparison study available FINDINGS: BONES: Acute comminuted fracture distal aspect of the fifth metacarpal without significant displacement.. JOINTS: No dislocation. SOFT TISSUES: Soft tissue swelling dorsally overlying the metacarpals. RAD/Hand Min 3 Views IMPRESSION: Acute comminuted distal fifth metacarpal fracture. Electronically Signed: Lisa Minor MD at 22:17 EDT ,
[2024-01-31 22:06] VITALS: BP 134/82; PULSE 81; RESP 16; TEMP 36.6; O2SAT 99
== END 2024-01-31 22:28 | disposition home or self-care (01) ==
PROVIDERS: Emergency Provider Emergency Medicine; Visit Provider Emergency Medicine
DX: S62.367A Nondisplaced fracture of neck of fifth metacarpal bone, left hand, initial encounter for closed fracture (principal); V89.2XXA Person injured in unspecified motor-vehicle accident, traffic, initial encounter
CPT/HCPCS: 73130; 99282

== ENCOUNTER 2024-04-28 18:30 | Outpatient (RCR) | payer MEDICAID, SELFPAY ==
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
--- NOTE | 2024-04-28 19:03 | HP.OTDCSUM ---
Discharge Summary D/C Summary: It has been my pleasure to treat JAMAICA PAGAN under orders from Dr. Troy Dupont MD, for the diagnosis of fracture of 5th metacarpal bone L hand for a total of 7 visit(s). Please see the following information for a summary of their discharge status. Overall Improvement % Improvement: 95 Objective Objective/Function: L hand employment evaluator/case manager 60# L hand lateral pinch 12# L tripod pinch 12# range of motion wfl able to make full fist Goals Patient Goals: Regain Strength, Decrease Pain, Return to Work, Decrease Swelling/Stiffness, Use Hand/Wrist/Arm Normally Again, Increase ROM, Resume Former Household Responsibilities (Cooking,Cleaning,Yard, etc.) and Resume Hobbies Goal:100% adherence to protocol: Yes Goal Progress: Goal Met Goal:ROM equal to unaffected hand: Yes Goal Progress: Goal Met Goal:Network Intern/Pinch strength at least 75% of unaffected hand: Yes Goal Progress: Goal Met Goal:No pain with affected hand use: Yes Goal Progress: Goal Met Goal:Full use of affected hand in daily activities including work: Yes Goal Progress: Goal Met Other Goal: pt will improve quick dash score by 10 points or more (75) in order to maximize functional use of L hand now 2.2 GOAL MET pt will demonstrate reduction in edema of L hand measuring equal to non affected hand by discharge GOAL MET Plan Plan: Continue POC: 4-6 weeks (1-2x week) start hand strengthening at 8 weeks if pain is less than a 4 (unless dr. moralez prior) D/C Information Discharge Comments: this 24 year old female seen for L hand D5 fx. pt with progress made in improved ROM and strength decreased pain and return to functional use of hand. discharge at this time all goals met. d/c sentence: If there are questions or concerns regarding this patient's occupational therapy, please fell free to call me at [phone]. Thank you for the referral of this patient. Sincerely, Stefanie Russ
--- NOTE | 2024-04-28 19:04 | HP.OT.NRP ---
Patient Information Patient Information: JAMAICA PAGAN was seen in my office for initial evaluation on 02/18/24. The following Plan of Care was established for this patient: POC Established Initial Frequency: 1-2x /Week Initial Duration: 4-6 Weeks Plan: Continue POC: 4-6 weeks (1-2x week) start hand strengthening at 8 weeks if pain is less than a 4 (unless dr. moralez prior) Anticipated Interventions Anticipated Interventions: A/AAROM/PROM, Strengthening, Edema Control, Triggerpoint Release, Modalities, Orthoses, Joint Protection/Energy Conservation, Education re Diagnosis and Home Program Last Seen Last Seen: This patient was last seen in our office 04/28/24. Pertinent comments regarding their Occupational therapy will appear below: this 24 year old female seen for L hand D5 fx. pt seen in OT with progress made in ROM as well as strength reduction in pain and swelling and improved functional use of hand. all goals met and discharge from OT services at this time. pt in agreeance. At this point I will be discontinuing this patient from occupational therapy. I would be happy to see this patient again in the future if found appropriate by the physician. Thank you! Stefanie Russ
== END 2024-04-28 19:00 | disposition home or self-care (01) ==
LOC: OT 18:30
PROVIDERS: Referring Provider Orthopaedic Surgery Sports Medicine; Visit Provider Orthopaedic Surgery Sports Medicine
DX: S62.307D Unspecified fracture of fifth metacarpal bone, left hand, subsequent encounter for fracture with routine healing (principal)
CPT/HCPCS: 97035; 97110; 97140; 97165; 97530